=== PATIENT | female | born 1950 | race Caucasian/White ===

== ENCOUNTER 2016-09-21 10:20 | Outpatient (CLI) | payer MEDICARE, OTHER ==
[2016-09-21 10:40] LABS: BASOPHILS % 0.5 (0.0-1.5); EOSINOPHILS % 1.2 % (0.0-6.8); LYMPHOCYTES # 1.2 # k/uL (0.6-4.0); MEAN CORPUSCULAR HEMOGLOBIN 29.9 pg (28.0-34.0); MONOCYTES # 0.2 # k/uL (0.0-0.9); NEUTROPHILS # 3.9 # k/uL (1.4-7.7)
[2016-09-21 11:03] LABS: BILIRUBIN,DIRECT 0.2 mg/dL (0.0-0.4); eGFR (African) > 60; eGFR (Non-African) > 60
[2016-09-21 18:50] LABS: LIPASE 66 U/L (13-60)
== END 2016-09-21 10:21 ==
LOC: LAB 10:20
PROVIDERS: ATTEND Internal Medicine
DX: Z79.899 Other long term (current) drug therapy (principal); E78.5 Hyperlipidemia, unspecified; E03.9 Hypothyroidism, unspecified; R79.9 Abnormal finding of blood chemistry, unspecified; R10.84 Generalized abdominal pain
CPT/HCPCS: 36415; 80053; 80061; 82150; 82248; 83690; 84439; 84443; 85025

== ENCOUNTER 2017-02-09 09:36 | Outpatient (CLI) | payer MEDICARE, OTHER ==
[2017-02-09 21:31] LABS: LIPASE 55 U/L (13-60)
== END 2017-02-09 09:37 ==
LOC: LAB 09:36
PROVIDERS: ATTEND Internal Medicine
DX: K29.70 Gastritis, unspecified, without bleeding (principal); K85.90 Acute pancreatitis without necrosis or infection, unspecified; I49.9 Cardiac arrhythmia, unspecified; E78.2 Mixed hyperlipidemia
CPT/HCPCS: 36415; 80061; 82150; 83690; 83704; 84450

== ENCOUNTER 2017-07-13 09:11 | Outpatient (CLI) | payer MEDICARE, OTHER | END 2017-07-13 09:12 | LOC: RAD 09:11 | PROVIDERS: ATTEND Internal Medicine | DX: M85.859 Other specified disorders of bone density and structure, unspecified thigh (principal) | CPT/HCPCS: 77080 ==

== ENCOUNTER 2017-09-26 09:07 | Outpatient (CLI) | payer MEDICARE, OTHER ==
[2017-09-26 09:39] LABS: BASOPHILS % 0.5 (0.0-1.5); EOSINOPHILS % 2.3 % (0.0-6.8); MEAN CORPUSCULAR HEMOGLOBIN 31.2 pg (28.0-34.0); MEAN CORPUSCULAR VOLUME 88.9 fl (80.0-100.0); MONOCYTES % 4.8 % (0.0-11.0); NEUTROPHILS # 3.5 # k/uL (1.4-7.7)
[2017-09-26 11:43] LABS: eGFR (African) > 60; eGFR (Non-African) > 60
== END 2017-09-26 09:10 ==
LOC: LAB 09:07
PROVIDERS: ATTEND Internal Medicine
DX: K29.70 Gastritis, unspecified, without bleeding (principal); K85.90 Acute pancreatitis without necrosis or infection, unspecified; M62.81 Muscle weakness (generalized); I49.9 Cardiac arrhythmia, unspecified; E78.2 Mixed hyperlipidemia
CPT/HCPCS: 36415; 80048; 80061; 82150; 83690; 84450; 85025

== ENCOUNTER 2018-08-15 10:50 | Outpatient (CLI) | payer MEDICARE, OTHER ==
[2018-08-15 11:29] LABS: MEAN CORPUSCULAR HEMOGLOBIN 31.2 pg (28.0-34.0)
[2018-08-15 11:30] LABS: BASOPHILS % 0.3 (0.0-1.5); EOSINOPHILS % 1.8 % (0.0-6.8); NEUTROPHILS # 3.7 # k/uL (1.4-7.7)
[2018-08-15 17:38] LABS: eGFR (Non-African) > 60
== END 2018-08-15 10:52 ==
LOC: LAB 10:50
PROVIDERS: ATTEND Internal Medicine
DX: E78.5 Hyperlipidemia, unspecified (principal); Z79.899 Other long term (current) drug therapy
CPT/HCPCS: 36415; 80048; 80061; 84450; 85025

== ENCOUNTER 2019-06-05 09:07 | Outpatient (CLI) | payer MEDICARE, OTHER ==
[2019-06-17 12:48] LABS: BASOPHILS % 0.4 % (0.0-1.5); NEUTROPHILS # 3.4 # k/uL (1.4-7.7)
[2019-06-17 12:49] LABS: HDL 49 mg/dL (>40); eGFR (Non-African) > 60
== END 2019-06-05 09:15 ==
LOC: LAB 09:07
PROVIDERS: ATTEND Internal Medicine
DX: E83.52 Hypercalcemia (principal); K29.70 Gastritis, unspecified, without bleeding
CPT/HCPCS: 36415; 80048; 80061; 82150; 83690; 84450; 85025

== ENCOUNTER 2019-09-17 09:27 | Outpatient (CLI) | payer MEDICARE, OTHER | END 2019-09-17 09:32 | LOC: LAB 09:27 | PROVIDERS: ATTEND Internal Medicine | DX: E78.5 Hyperlipidemia, unspecified (principal); K29.70 Gastritis, unspecified, without bleeding; Z79.899 Other long term (current) drug therapy | CPT/HCPCS: 36415; 80048; 80061; 82150; 84450; 85025 ==